=== PATIENT | female | born 1975 ===

== ENCOUNTER 2017-01-23 22:45 | Observation (INO) | payer OTHER ==
[2017-01-24] MEDS ORDERED: ACETAMINOPHEN 325 MG TAB PO PRN (01:25)
[2017-01-24] MEDS ORDERED: ONDANSETRON 4 MG/2 ML VIAL IVP PRN (01:25)
[2017-01-24] MEDS ORDERED: LORazepam 0.5 MG TAB PO PRN (01:30)
[2017-01-24] MEDS ORDERED: ALBUTEROL 3 ML DEYVIAL IH PRN (01:30)
[2017-01-24] MEDS ORDERED: HYDROCODONE/APAP 5/325 TAB PO PRN (01:30)
[2017-01-24] MEDS ORDERED: NS 1,000 ML IV SCH (01:30)
[2017-01-24] MEDS ORDERED: PROTOCOL MAGNESIUM 1 DOSE IV PRN (02:07)
[2017-01-24] MEDS ORDERED: PROTOCOL POTASSIUM 1 DOSE MISC PRN (02:07)
--- NOTE | 2017-01-24 02:50 | GHP ---
[f rep st] HISTORY AND PHYSICAL DATE OF ADMISSION: 01/23/2017 SOURCE: Patient provides history, appears reliable. Her accompanying paper chart from [facility] was also reviewed, and case discussed with ED provider prior to patient's arrival for [facility]. CHIEF COMPLAINT: Shortness of breath. HISTORY OF PRESENT ILLNESS: This is a very pleasant 41-year-old female with past medical history sig nificant only for reactive airway disease who presents to the emergency department in [place] with complaints of progressive 1-day history of shortness of breath. Patient just arrived to the [facility] earlier today from [place] in [place] where she and her drove directly up to [facility] at over 8000 feet. Patient states that she was able to complete a hike. However, she developed sh ortness of breath. Patient tried to use an inhaler with only very minimal effect and continued on he r hike. She subsequently developed bilateral chest tightness and pleuritic type chest pain with wors ening dyspnea. She presented to the emergency department for evaluation. REVIEW OF SYSTEMS: GENERAL: Patient denies any fevers, chills, or sweats. CV: Bilateral pleuritic chest pain as noted per HPI. No palpitations. RESPIRATORY: Dyspnea on exertion. No cough. ENT: No nasal congestion or sore throat. Some sneezing with the cold weather. GI: No nausea, vomiting, abdominal pain. : No dysuria or hematuria. NEURO: No headache, numbness, tingling, or focal de ficits. Remainder of review of systems negative except as noted above. ALLERGIES: Amoxicillin. Patient develops itching. She also has anaphylactic reaction to ant bites. MEDICATIONS: Albuterol inhaler p.r.n. PAST MEDICAL HISTORY: Significant for reactive airway disease and recurrent UTIs. PAST SURGICAL HISTORY: Patient denies. FAMILY HISTORY: Father with history of UT and CAD age 50s to 60s and diabetes. SOCIAL HISTORY: Patient does not smoke, drink, or do drugs. She is , lives in [place], [place] , in the [place] area. CODE STATUS: Full. PHYSICAL EXAMINATION: VITAL SIGNS: From outside facility: Initially, patient was noted to have tac hycardia to 1 teens with respiratory rate in the 20s. O2 saturation on room air remained above 90. Last vitals available for review from that facility: Blood pressure 139/100, pulse 108, respiratory rate 17, temperature 98.2, 95% on room air. Current vitals at [facility]: Blood pressure 122/75, heart rat e 88, respiratory rate 16, O2 saturation 99% on 2 L by nasal cannula. Temperature is 36.6. GENERAL: No acute distress. Lilliana adult female who is resting quietly in bed. She does appear quite fat igued. is at bedside. HEAD: Normocephalic, atraumatic. EYES: No ocular drainage. No scl eral icterus. ENT: Mucous membranes appear slightly dry. No oropharyngeal erythema or exudates. D entition intact. CV: Regular rate and rhythm. No murmurs, rubs, or gallops appreciated. RESPIRATO RY: Lungs are clear to auscultation bilaterally. No wheezes, rales, or rhonchi appreciated. Unlabo red breathing. ABDOMEN: Soft, nontender to palpation. No rebound, guarding, or masses appreciated. : No suprapubic tenderness to palpation. No Yepez in place. EXTREMITIES: Patient with 2+ peda l pulses. No lower extremity edema. MUSCULOSKELETAL: Patient moves all extremities. She is able t o turn to her side independently. NEURO: Grossly nonfocal. No facial drooping. Moves all extremit ies. PSYCH: Patient awake, alert, oriented x3. She is quite fatigued but pleasant and cooperative. LABORATORY STUDIES: From outside facility: WBC 9.8, H and H 12.8 and 38.7, platelet count 248, MCV 88. Sodium is 143, potassium 3.3, chloride 107, CO2 of 22, BUN 16, creatinine 0.8, GFR greater than 60, glucose is 126. Calcium 9.2. Total protein 7.6, albumin 4.0, total bilirubin 0.7, ALT 26, AST 2 7, alkaline phosphatase is 71. Troponin is negative, less than 0.012. EKG shows sinus tachycardia with a QTc of 449 and no evidence of right heart strain. X-ray: Attempted to open the accompanying disk but unable to open on available computers. At this t lauren, will try to assess the x-ray on another machine. Per ED provider, prior to patient's transfer, his assessment was that the x-ray was normal and there was no evidence of pulmonary edema or infiltra shannon. ASSESSMENT AND PLAN: Lilliana 41-year-old female with history of reactive airway disease who present s with acute onset of dyspnea and pleuritic chest pain. 1. Shortness of breath. Differential diagnosis is most likely secondary to high altitude illness wi thout any current evidence of pulmonary edema. Patient was transferred for lower altitude to improve her symptoms, and patient reports she is 99% improved with no further complaints of dyspnea, but now just fatigue. At this time, as patient has improved, I do not feel that steroids are necessary at t his time. Additional differential to consider, also a pulmonary embolus. However, patient's [place] s core was low and she did not have any evidence of DVT. She did not have hypoxia, and her tachycardia has resolved with arrival to lower altitude. Patient without any evidence of heart failure or histo ry thereof, and overall, symptoms have been improving. I did school adjustment counselor the patient and her stacia melvi it would be recommended that they stay at lower altitude for an additional few days before any atte mpts to ascend to higher altitude again during their vacation here. Also encouraged patient to remai n highly hydrated, which she had not been doing over the course of the day, for which we will supplem ent with some IV fluids overnight. 2. History of reactive airway disease. No evidence of exacerbation. No wheezing. Albuterol nebuli zer will be available p.r.n. 3. Hyperglycemia. This is a nonfasting lab and check later in the morning. 4. Hypokalemia. Replacement will be ordered. 5. Fluid, electrolyte, nutrition: IV fluids as noted above. Advance diet as tolerated. Electrolyt es will be replaced as needed. 6. Prophylaxis. SCDs, holding anticoagulation as patient with low risk. Consider addition if patie nt should need to stay additional day but anticipate short hospital stay. SCDs are ordered. 7. Code status: Full. 8. Disposition: Patient admitted to observation on PCU for close cardiac monitoring. /[id number]/MODL
[2017-01-24 06:18] LABS: % IMMATURE GRANULYOCYTES 0.6 % (0.0-1.1); ABSOLUTE IMMATURE GRANULOCYTES 0.04 10^3/uL (0.00-0.10); ADD DIFF? NO; ADD MORPH? NO; ADD SCAN? NO; ATYPICAL LYMPHOCYTE FLAG 10 (0-99); FRAGMENT RBC FLAG 0 (0-99); HEMATOCRIT 33.7 % (38.0-47.0); HEMOGLOBIN 10.9 g/dL (12.6-16.3); LEFT SHIFT FLG 0 (0-99); LIPEMIA HEMOLYSIS FLAG 80 (0-99); MEAN CELL HEMOGLOBIN 28.6 pg (27.9-34.1); MEAN CELL HEMOGLOBIN CONCENTR. 32.3 g/dL (32.4-36.7); MEAN CELL VOLUME 88.5 fL (81.5-99.8); MEAN PLATELET VOLUME 10.7 fL (8.7-11.7); PLATELET CLUMPS FLAG 0 (0-99); PLATELET COUNT 220 10^3/uL (150-400); RED BLOOD CELL COUNT 3.81 10^6/uL (4.18-5.33); RED CELL DISTRIBUTION WIDTH 14.4 % (11.5-15.2)
[2017-01-24 06:31] LABS: ANION GAP 11 mEq/L (8-16); CALCIUM 8.3 mg/dL (8.5-10.4); CARBON DIOXIDE 20 mEq/l (22-31); CHLORIDE 111 mEq/L (97-110); CREATININE 0.7 mg/dL (0.6-1.0); GLOMERULAR FILTRATION RATE > 60; GLUCOSE 86 mg/dL (70-100); MAGNESIUM 1.7 mg/dL (1.6-2.3); POTASSIUM 4.1 mEq/L (3.5-5.2); SODIUM 142 mEq/L (134-144)
[2017-01-24] MEDS ORDERED: MAGNESIUM SULF 1 GM/DEXTROSE 100 ML IV ONE (07:11)
--- NOTE | 2017-01-24 09:26 | ASMTCMCOM ---
CM Note CM Note Notes: 01/24/2017 Case Management Note Reviewed chart. No case management d/c needs identified d/t marital status, age and activity levels prior to admission. No therapy evals ordered. Case Management poc: Home independent when medically stable with follow up as directed. Case management available if needs change. Date Signed: 01/24/2017 09:25 AM Electronically Signed By:Margy Nance RN
[2017-01-24] MEDS ORDERED: ALBUTEROL IH PRN (11:26)
[2017-01-24] MEDS ORDERED: ALBUTEROL 200 PUFFS/18 GM MDI IH PRN ×2 (11:36→12:00)
[2017-01-24] MEDS ORDERED: FUROSEMIDE 20 MG/2 ML VIAL IVP ONE (12:34)
[2017-01-24 12:36] VITALS: BP 119/85; PULSE 83; RESP 16; TEMP 97.8; O2SAT 96
--- NOTE | 2017-01-24 16:52 | PDDCSUM ---
Discharge Summary Discharge Summary: DISCHARGE SUMMARY FOLLOW-UP ITEMS: Outpatient echocardiogram if symptoms unresolved DATE OF ADMISSION: 01/24/2017 DATE OF DISCHARGE: 01/24/2017 DISCHARGE DIAGNOSES: 1. Suspected high altitude acute pulmonary edema CONSULTATIONS: None PROCEDURES / IMAGING: Chest x-ray demonstrating hazy left lower lobe interstitial infiltrates CHIEF COMPLAINT: Acute shortness of breath and fatigue SUBJECTIVE: Patient continues to experience some exertional fatigue, but is otherwise asymptomatic PHYSICAL EXAM ON DISCHARGE: Systolic blood pressures 110, heart rate 85, afebrile overnight, satting 96% on room air, lungs are clear to auscultation bilaterally without any expiratory wheezes or bronchial breath sounds, heart rhythm is regular, no lower extremity edema LABS ON DISCHARGE: D-dimer is normal, troponins no, white blood cell count 6500 with normal differential, creatinine 0.7, potassium 4.1, hemoglobin 10.9 HOSPITAL COURSE BY PROBLEM: The patient presented with symptomatic shortness of breath believed to be secondary to high altitude acute pulmonary edema, as evidenced by hazy pulmonary infiltrates on chest x-ray with no evidence of infection, no evidence of pulmonary embolism, no evidence of myocardial ischemia. The treatment for high altitude pulmonary edema is transferring to [facility], and the patient did exactly that when she transferred from [place] to [facility]. This intervention alone seemed to improve the patient's symptoms, and after full discussion with the patient and her regarding the presumed diagnosis, we have agreed to give her 1 dose of Lasix to initiate the diuresis process, as well as a script for as needed Lasix if she continues to experience any exertional fatigue during the remainder of her time here in [place]. Given that the patient's exercise tolerance prior to her trip to [place] was excellent, and the patient does not have any other cardiovascular risk factors, I do not believe further cardiac risk stratification is indicated at this time. I also do not believe that an echo is urgently indicated given that the patient's symptoms have drastically improved and any fixed valvular abnormalities would not have such a course. That being said, if the patient's symptoms do not completely resolve at her home elevation, and I would recommend an outpatient echocardiogram to further assess. DISCHARGE MEDICATIONS: Please see official discharge medication reconciliation sheet in chart , Lasix 20 mg twice daily as needed. DISCHARGE INSTRUCTIONS: Please follow up with primary care provider this week upon returning home to [facility].
== END 2017-01-24 14:07 | disposition home or self-care (01) ==
LOC: F2W 23:50 → INTOOBSV 23:50 → F2W 23:59 → UNDOADMIN 23:59
PROVIDERS: ADMIT Family Medicine; ATTEND Internal Medicine
DX: T70.29XA Other effects of high altitude, initial encounter (principal); J81.0 Acute pulmonary edema; R06.02 Shortness of breath; R53.83 Other fatigue
CPT/HCPCS: 71020; G0378; J1940